=== PATIENT | male | born 1955 | race Caucasian/White ===

== ENCOUNTER 2017-12-24 11:52 | Outpatient (CLI) | payer OTHER ==
[2017-12-24 14:01] LABS: Hemoglobin 13.7 g/dL (14.0-18.0); Mean Corpuscular HGB CONC 34.5 g/dL (32.0-36.0); Mean Corpuscular Hemoglobin 32.2 pg (27.0-31.0); Mean Corpuscular Volume 93.3 fl (80.0-94.0); Mean Platelet Volume 6.6 fL (7.4-10.4); Platelet Count 364 thou/uL (130-400); RBC Distribution Width 11.7 % (11.5-14.5); Red Blood Cell (RBC) Count 4.27 mill/uL (4.70-6.10); White Blood Cell (WBC) Count 7.9 thou/uL (4.8-10.8)
[2017-12-24 14:07] LABS: INR-International Normal Ratio 1.1; PTT 32.1 SEC (22.9-36.1); Prothrombin Time 13.9 SEC (12.0-14.7)
[2017-12-24 14:09] LABS: Bilirubin Negative (Negative); Blood, Urine Trace (Negative); Clarity CLEAR (Clear); Glucose, Urine (Dipstick) Negative (Negative); Leukocyte Moderate (Negative); Nitrite Negative (Negative); Protein, Urine (Dipstick) Negative (Neg-Trace); Specific Gravity, Urine 1.017 (1.002-1.036); Urobilinogen 0.2 mg/dL (0.2-1.0); pH, Urine 5.5 (5.0-9.0)
[2017-12-24 14:14] LABS: Bacteria/HPF None Seen HPF (None Seen); Pathc Cast-AUWi Flag 0.87 (0-2.49)
[2017-12-24 14:30] LABS: Anion Gap 12 mmol/L (10-20); BUN (Urea Nitrogen) 16 mg/dL (8.4-25.7); Calc. Creatinine Clearance 0 mL/min (70-130); Calcium 9.3 mg/dL (7.8-10.44); Carbon Dioxide 24 mmol/L (23-31); Chloride 106 mmol/L (98-107); Estimated GFR-MDRD Greater than 90; Glucose 83 mg/dL (80-115); Potassium 4.1 mmol/L (3.5-5.1); Sodium 138 mmol/L (136-145)
[2017-12-24 15:15] LABS: Hyaline Casts/LPF 0-3 HYALINE CAST LPF (0-3 Hyaline)
[2017-12-24 15:16] LABS: Transitional Epithelial 0-3 HPF (0-3)
--- NOTE | 2017-12-24 16:49 | EKG ---
Test Reason : Blood Pressure : / mmHG Vent. Rate : 043 BPM Atrial Rate : 043 BPM P-R Int : 154 ms QRS Dur : 100 ms QT Int : 428 ms P-R-T Axes : 076 074 036 degrees QTc Int : 361 ms Marked sinus bradycardia Abnormal ECG When compared with ECG of 17-DEC-2010 09:27, No significant change was found Confirmed by DR. Keke WARNER ([id number]) on 12/24/2017 4:48:36 PM Referred By: JELLY Confirmed By:DR. Keke WARNER
== END 2017-12-24 11:53 | disposition home or self-care (01) ==
LOC: LABBT 11:52
PROVIDERS: ATTEND Urology
DX: Z01.818 Encounter for other preprocedural examination (principal); N40.1 Benign prostatic hyperplasia with lower urinary tract symptoms; R00.1 Bradycardia, unspecified; R94.31 Abnormal electrocardiogram [ECG] [EKG]
CPT/HCPCS: 80048; 81001; 85027; 85610; 85730; 86850; 86900; 86901; 87086; 93005; 93010

== ENCOUNTER 2017-12-30 06:02 | Observation (INO) | payer OTHER ==
[2017-12-24 12:28] VITALS: BMI 22.6
[2017-12-30] MEDS ORDERED: Levofloxacin 500 mg/D5W 100 ml Premix Bag ONE (06:12)
[2017-12-30] MEDS ORDERED: Midazolam HCl 2 mg/2 ml Vial ONE (07:12)
[2017-12-30] MEDS ORDERED: Fentanyl 100 MCG/2 ML VIAL ONE (07:12)
[2017-12-30] MEDS ORDERED: B & O ONE (07:15)
[2017-12-30] MEDS ORDERED: PROPOFOL 200 MG/20 ML VIAL ONE (07:16)
[2017-12-30] MEDS ORDERED: Lidocaine 1% PF 5 ML VIAL ONE (07:16)
[2017-12-30] MEDS ORDERED: PHENYLEPHRINE-NS 100 MCG/ML 10 ML SYRINGE ONE (07:16)
[2017-12-30] MEDS ORDERED: Glycopyrrolate 0.2 MG/ML 5 ML SYRINGE ONE (07:16)
[2017-12-30] MEDS ORDERED: Promethazine HCl 25 MG/ML VIAL IM PRN (09:07)
[2017-12-30] MEDS ORDERED: Promethazine HCl 25 MG/ML VIAL SLOW IVP PRN (09:07)
[2017-12-30] MEDS ORDERED: Ondansetron HCl/PF 4 MG/2 ML Vial IVP PRN ×2 (09:07→09:21)
[2017-12-30] MEDS ORDERED: Mag-Al 1200 mg/1200 mg/30 ML UDCUP PO PRN (09:21)
[2017-12-30] MEDS ORDERED: hydrALAZINE 20 MG/ML VIAL SLOW IVP PRN (09:21)
[2017-12-30] MEDS ORDERED: Acetaminophen 500 MG TAB PO PRN (09:21)
[2017-12-30] MEDS ORDERED: Morphine 4 MG/ML Carpuject IVP PRN (09:21)
[2017-12-30] MEDS ORDERED: Oxybutynin 5 MG TAB PO PRN (09:21)
[2017-12-30] MEDS ORDERED: diphenhydrAMINE 25 MG CAP PO PRN (09:21)
[2017-12-30] MEDS ORDERED: Bisacodyl 10 MG SUPP PR PRN (09:21)
[2017-12-30] MEDS ORDERED: traMADol HCl 50 MG TAB PO PRN (09:23)
--- NOTE | 2017-12-30 09:56 | OP ---
DATE OF SURGERY: 12/30/2017 SERVICE: Urology. SURGEON: Dr. Johnny Wills PREOPERATIVE DIAGNOSIS: Benign prostatic hypertrophy. POSTOPERATIVE DIAGNOSIS: Benign prostatic hypertrophy. PROCEDURE PERFORMED: Transurethral vaporization of the prostate. INDICATIONS FOR PROCEDURE: Mr. Morris is a 62-year-old white male with BPH and significant lower urinary tract symptoms. He does not like the idea of having to take medication for prostate issues f or his entire life. He has been worked up for prostatic obstruction, found to have an obstructive pr ostate with decreased Uroflow. Risks and benefits of surgery were discussed and he agreed to proceed forward. DESCRIPTION OF PROCEDURE: After identification of his armband and verification of consent, the patie nt was brought back to the operating room and underwent general anesthesia with an LMA. He was place d in dorsal lithotomy position and prepped and draped in usual sterile fashion. After appropriate ti meout, a lubricated 26 Nigerien resectoscope with visual obturator was introduced per urethra into the bladder. The prostate was hypertrophic as expected and previously been seen. The bladder was as pre viously described on cystoscopy with a bladder diverticulum on the right with ureteral orifice on the right just at the os of the diverticulum in the normal orthotopic on the left. Vaporization was beg un at the bladder neck and carried back towards the verumontanum circumferentially until the prostate was wide open. Resection was carried out close to the capsule, but not to it. The capsule was not seen at any point during the vaporization. There is still a rim of parenchyma still present between the capsule and the resection site. The prostate was wide open, however, and relaxing incisions were made at 5 and 7 o'clock on the bladder neck to further open up the bladder and allow for easier urin ation. Meticulous hemostasis was then performed with the coag function. Upon completion, the prosta te was wide open and there was no bleeding. Inspection within the bladder demonstrated both ureters in their orthotopic location unharmed. There were no chips to evacuate the resectoscope was then wit hdrawn and a 22-Nigerien three-way Araiza catheter was inserted with ease into the bladder. [address] erile water was instilled into the balloon and then hooked up to gravity drainage. CBI was initiated and a StatLock placed on the patient's leg. A 16 AB&O suppository was placed in the patient's rectum . The patient was then awakened and taken to PACU for recovery in stable condition. COMPLICATIONS: None. ESTIMATED BLOOD LOSS: Minimal. RETAINED TUBES AND DRAINS: The 22-Nigerien 3-way Araiza catheter with 30 mL of sterile water in the bal loon. SPECIMENS: None. DISPOSITION: The patient will be kept in the hospital overnight in observation for CBI. We will trish n for a voiding trial and discharge in the morning.
[2017-12-30] MEDS ORDERED: Morphine 4 MG/ML VIAL IV PRN ×3 (10:31→10:45)
[2017-12-30 11:11] LABS: Anion Gap 12 mmol/L (10-20); BUN (Urea Nitrogen) 15 mg/dL (8.4-25.7); Calc. Creatinine Clearance 87 mL/min (70-130); Calcium 9.3 mg/dL (7.8-10.44); Carbon Dioxide 25 mmol/L (23-31); Chloride 105 mmol/L (98-107); Estimated GFR-MDRD Greater than 90; Glucose 98 mg/dL (80-115); Potassium 4.1 mmol/L (3.5-5.1); Sodium 138 mmol/L (136-145)
[2017-12-30] MEDS: Hyoscyamine Sulfate SL 0.125 mg Tablet SL PRN (16:03)
[2017-12-30] MEDS ORDERED: Metamucil PACK PO SCH (17:45)
[2017-12-30] MEDS: Amlodipine 5 MG TAB PO SCH ×2 (20:08→21:45)
[2017-12-30] MEDS: Docusate 100 MG CAP PO SCH (20:13)
[2017-12-30] MEDS: Metoprolol Tartrate 25 MG TAB PO SCH (20:14)
[2017-12-30] MEDS ORDERED: Metoprolol Tartrate 25 MG TAB PO SCH (21:00)
[2017-12-30] MEDS ORDERED: Amlodipine 5 MG TAB PO SCH (21:00)
[2017-12-30] MEDS ORDERED: Lisinopril 10 MG TAB PO SCH ×2 (21:00)
[2017-12-30] MEDS ORDERED: Atorvastatin Calcium 20 MG TAB PO SCH ×2 (21:00)
[2017-12-31] MEDS: Hyoscyamine Sulfate SL 0.125 mg Tablet SL PRN (00:22)
[2017-12-31] MEDS ORDERED: Metamucil PACK PO SCH (09:00)
[2017-12-31] MEDS: Metoprolol Tartrate 25 MG TAB PO SCH (09:46)
[2017-12-31] MEDS: Docusate 100 MG CAP PO SCH (09:46)
[2017-12-31 11:53] VITALS: BP 125/76; TEMP 98
--- NOTE | 2017-12-31 14:50 | PRG ---
DATE OF SERVICE: 12/31/2017 SUBJECTIVE: The patient states he is doing very well. He has had no pain or bladder spasms. Denies any fevers or chills, had no events overnight. OBJECTIVE: VITAL SIGNS: Temperature 98.2, pulse 60, respirations 16, blood pressure 132/84, saturation 99% on r oom air. GENERAL: No apparent distress, communicative and alert. CARDIOVASCULAR: Regular rate and rhythm. ABDOMEN: Soft, nontender, nondistended, positive bowel sounds. GENITOURINARY: Araiza catheter in place with CBI off with completely yellow urine. EXTREMITIES: No clubbing, cyanosis or edema. LABORATORY DATA: On laboratory evaluation, a full set of labs in the [employer] system, which I have r estebanwed. Of note, patient's creatinine is 0.75. ASSESSMENT AND PLAN: A 62-year-old white male status post transurethral vaporization of the prostate postop day #1, he is doing very well. We will plan to void trial and serial urine collection so donna g as he is able to void with relatively clear urine. He can be discharged home and follow up with me in approximately 2 weeks for a postop check.
--- NOTE | 2017-12-31 15:10 | DIS ---
DATE OF ADMISSION: 12/30/2017 DATE OF DISCHARGE: 12/31/2017 ADMITTING PHYSICIAN: Johnny Wills M.D. DISCHARGING PHYSICIAN: Johnny Wills M.D. ADMITTING DIAGNOSIS: Benign prostatic hypertrophy. DISCHARGE DIAGNOSIS: Benign prostatic hypertrophy. PROCEDURE PERFORMED: Transurethral vaporization of the prostate. HISTORY: Please see scanned H and P in [facility]. HOSPITAL COURSE: After surgery (please see operative note for details), the patient was kept in the hospital overnight for continuous bladder irrigation. He had very little hematuria and CBI was stopp ed. He passed his voiding trial with clear urine on serial urine collection, was discharged to home. DISCHARGE DISPOSITION: To home. DISCHARGE CONDITION: Good. DISCHARGE MEDICATION RECONCILIATION: Please see BRIA in the [email or web address] system. DISCHARGE INSTRUCTIONS: Please see [email or web address]. FOLLOW UP: Will be in approximately 2 weeks.
== END 2017-12-31 12:32 | disposition home or self-care (01) ==
LOC: SDC 06:02 → SURG A 09:31
PROVIDERS: ADMIT Urology; ATTEND Urology
PROC: 0V507ZZ Destruction of Prostate, Via Natural or Artificial Opening (ICD-10-PCS; principal; 2017-12-30)
DX: N40.1 Benign prostatic hyperplasia with lower urinary tract symptoms (principal); N13.8 Other obstructive and reflux uropathy; I10 Essential (primary) hypertension; I25.10 Atherosclerotic heart disease of native coronary artery without angina pectoris; Z79.899 Other long term (current) drug therapy
CPT/HCPCS: 36415; 80048; G0378; J0360; J1956; J2001; J2250; J2704; J3010

== ENCOUNTER 2023-01-05 11:53 | Outpatient (CLI) | payer MEDICARE ==
[2023-01-05 13:52] LABS: #Eosinphils 0.1 10x3/uL (0.0-0.5); #Monocytes 0.8 10x3/uL (0.0-1.1); #Neutrophils 6.3 10x3/uL (1.5-8.4); %Basophils 0.4 % (0.0-2.0); %Eosinophils 1.2 % (0.0-6.0); %Lymphocytes 19.8 % (18.0-47.0); %Monocytes 9.1 % (0.0-10.0); Hemoglobin 13.2 g/dL (13.5-17.5); Mean Corpuscular HGB CONC 34.1 g/dL (32.0-36.0); Mean Corpuscular Hemoglobin 30.3 pg (27.0-33.0); Mean Platelet Volume 9.3 fl (7.4-10.4); Platelet Count 360 10x3/uL (150-450); RBC Distribution Width 12.8 % (11.5-14.5); Red Blood Cell (RBC) Count 4.35 10x6/uL (4.32-5.72); White Blood Cell (WBC) Count 9.1 10x3/uL (3.5-10.5)
[2023-01-05 14:20] LABS: ALT (SGPT) 16 U/L (8-55); AST (SGOT) 16 U/L (5-34); Albumin 4.5 g/dL (3.4-4.8); Alkaline Phosphatase 56 U/L (40-110); Anion Gap 17 mmol/L (10-20); BUN (Urea Nitrogen) 21 mg/dL (8.4-25.7); Bilirubin, Total 0.7 mg/dL (0.2-1.2); Calc. Creatinine Clearance 0 mL/min (70-130); Calcium 9.4 mg/dL (7.8-10.44); Carbon Dioxide 20 mmol/L (23-31); Chloride 105 mmol/L (98-107); Estimated GFR 96; Globulin 2.3 g/dL (2.4-3.5); Glucose 97 mg/dL (80-115); Potassium 4.2 mmol/L (3.5-5.1); Protein, Total 6.8 g/dL (5.8-8.1); Sodium 138 mmol/L (136-145)
== END 2023-01-05 11:54 | disposition home or self-care (01) ==
LOC: LABBT 11:53
PROVIDERS: ATTEND Internal Medicine Cardiovascular Disease
DX: Z01.812 Encounter for preprocedural laboratory examination (principal)
CPT/HCPCS: 80053; 85025

== ENCOUNTER 2023-06-28 20:51 | Observation (INO) | payer MEDICARE ==
[~2023-06-28 20:51] MED LIST: Iopamidol 370 76% 100 ML VIAL ONE
[2023-06-28 22:05] LABS: #Basophils 0.1 thou/uL (0.0-0.2); #Eosinphils 0.1 thou/uL (0.0-0.7); #Neutrophils 7.7 thou/uL (1.40-6.50); %Basophils 0.5 % (0.0-1.0); %Eosinophils 1.2 % (0.0-10.0); %Lymphocytes 17.8 % (21.0-51.0); %Neutrophils 69.9 % (42.0-75.0); Hematocrit 39.6 % (42.0-52.0); Mean Corpuscular HGB CONC 32.8 g/dL (32.0-36.0); Mean Corpuscular Hemoglobin 29.5 pg (27.0-31.0); Mean Platelet Volume 8.2 fL (7.4-10.4); Platelet Count 520 10x3/uL (130-400); RBC Distribution Width 13.7 % (11.5-14.5)
[2023-06-28 22:29] LABS: ALT (SGPT) 82 U/L (8-55); AST (SGOT) 27 U/L (5-34); Albumin 4.7 g/dL (3.4-4.8); Alkaline Phosphatase 38 U/L (40-110); Anion Gap 15 mmol/L (10-20); BUN (Urea Nitrogen) 13 mg/dL (8.4-25.7); Bilirubin, Total 0.9 mg/dL (0.2-1.2); Calc. Creatinine Clearance 0 mL/min (70-130); Calcium 9.7 mg/dL (7.8-10.44); Carbon Dioxide 26 mmol/L (23-31); Chloride 100 mmol/L (98-107); Estimated GFR 95; Globulin 2.3 g/dL (2.4-3.5); Glucose 119 mg/dL (80-115); Lipase 21 U/L (8-78); Magnesium 2.3 mg/dL (1.6-2.6); Potassium 4.1 mmol/L (3.5-5.1); Sodium 137 mmol/L (136-145)
[2023-06-28 22:48] LABS: Bacteria/HPF None Seen HPF (None Seen); Bilirubin Negative (Negative); Blood, Urine Negative (Negative); CAUTI Indications for Culture Pelvic or flank pain; Clarity Clear (Clear); Glucose, Urine (Dipstick) Normal (Negative); Ketone, Urine Negative (Negative); Leukocyte Negative Leu/uL (Negative); Nitrite Negative (Negative); Protein, Urine (Dipstick) Negative (Neg-Trace); RBC/HPF 0-3 HPF (0-3); Squamous Epithelial None Seen HPF (0-3); Urobilinogen Normal mg/dL (Less than 2); WBC/HPF 0-3 HPF (0-3)
[2023-06-28 22:51] LABS: Urine Culture Reflex No No
[2023-06-28] MEDS ORDERED: Ondansetron PF 4 MG/2 ML Vial ONE (22:57)
[2023-06-28] MEDS ORDERED: Metoclopramide HCl 10 MG/2 ML VIAL ONE (22:57)
[2023-06-28] MEDS ORDERED: diphenhydrAMINE 50 MG/ML VIAL ONE (22:57)
[2023-06-29] MEDS ORDERED: HYDROcodone/Acetaminophen 5/325 mg Tablet ONE (00:23)
[2023-06-29] MEDS ORDERED: Acetaminophen 325 MG TAB PO PRN (01:10)
[2023-06-29] MEDS ORDERED: Ondansetron ODT 4 MG TAB PO PRN (01:10)
[2023-06-29] MEDS ORDERED: Ondansetron PF 4 MG/2 ML Vial IVP PRN (01:10)
[2023-06-29] MEDS ORDERED: Sodium Chloride 0.9% 1,000 ML IV SCH (01:15)
[2023-06-29] MEDS ORDERED: Labetalol HCl 100 MG/20 ML VIAL SLOW IVP PRN (01:38)
[2023-06-29 01:55] VITALS: BMI 25.0
[2023-06-29 01:59] LABS: Amphetamine Not Detected (NotDetected); Barbiturates Screen Not Detected (NotDetected); Benzodiazepine Screen Not Detected (NotDetected); Cocaine Metabolite Screen Not Detected (NotDetected); Methadone Not Detected (NotDetected); Methamphetamine Not Detected (NotDetected); Opiate Screen Not Detected (NotDetected); Oxycodone Screen Not Detected (NotDetected); Phencyclidine (PCP) Not Detected (NotDetected); THC/Cannabinoid Screen Detected (NotDetected); Tricyclic Screen Not Detected (NotDetected)
[2023-06-29] MEDS: metroNIDAZOLE 500 MG in Premix 1 BAG IVPB SCH ×3 (02:03→17:25)
[2023-06-29] MEDS ORDERED: Lisinopril 10 MG TAB PO SCH ×2 (02:45→21:00)
[2023-06-29] MEDS ORDERED: hydrALAZINE 20 MG/ML VIAL SLOW IVP SCH (02:45)
[2023-06-29] MEDS ORDERED: LevoFLOXacin 750 mg/D5W 750 MG in Premix 1 BAG IVPB SCH (03:00)
[2023-06-29] MEDS: HYDROcodone/Acetaminophen 7.5/325 mg Tablet PO PRN ×2 (03:01→08:20)
[2023-06-29 06:51] LABS: #Basophils 0.1 thou/uL (0.0-0.2); #Eosinphils 0.2 thou/uL (0.0-0.7); #Monocytes 1.1 thou/uL (0.11-0.59); #Neutrophils 7.9 thou/uL (1.40-6.50); %Basophils 0.5 % (0.0-1.0); %Eosinophils 1.4 % (0.0-10.0); %Lymphocytes 15.6 % (21.0-51.0); %Monocytes 9.8 % (0.0-10.0); %Neutrophils 69.8 % (42.0-75.0); Mean Corpuscular HGB CONC 33.3 g/dL (32.0-36.0); Mean Corpuscular Hemoglobin 30.2 pg (27.0-31.0); Mean Corpuscular Volume 90.7 fl (78.0-98.0); Mean Platelet Volume 8.1 fL (7.4-10.4); Platelet Count 545 10x3/uL (130-400); RBC Distribution Width 13.6 % (11.5-14.5); Red Blood Cell (RBC) Count 4.63 mill/uL (4.70-6.10); White Blood Cell (WBC) Count 11.4 10x3/uL (4.8-10.8)
[2023-06-29 07:21] LABS: Anion Gap 14 mmol/L (10-20); BUN (Urea Nitrogen) 10 mg/dL (8.4-25.7); Calc. Creatinine Clearance 87 mL/min (70-130); Calcium 9.3 mg/dL (7.8-10.44); Carbon Dioxide 26 mmol/L (23-31); Chloride 102 mmol/L (98-107); Estimated GFR 97; Glucose 103 mg/dL (80-115); Magnesium 2.2 mg/dL (1.6-2.6); Phosphorus 3.4 mg/dL (2.3-4.7); Potassium 3.8 mmol/L (3.5-5.1); Sodium 138 mmol/L (136-145)
[2023-06-29] MEDS ORDERED: Isosorbide Mononitrate 30 MG ER.TAB PO SCH (09:00)
[2023-06-29] MEDS ORDERED: Metoprolol Tartrate 25 MG TAB PO SCH (09:00)
[2023-06-29] MEDS ORDERED: Clopidogrel Bisulfate 75 MG TAB PO SCH (09:00)
[2023-06-29] MEDS ORDERED: FLU VACC QS2023(65UP)/MF59C/PF 60 MCG/0.5 ML SYRINGE IM ONE (09:00)
[2023-06-29] MEDS ORDERED: Non-Formulary Item 1 EACH (Isosorbide Mononitrate [Isosorbide Mononitrate] 10 MG Tablet) PO SCH (09:00)
[2023-06-29] MEDS ORDERED: Aspirin Chewable 81 MG TAB PO SCH (09:00)
[2023-06-29 11:31] LABS: ALT (SGPT) 72 U/L (8-55); AST (SGOT) 23 U/L (5-34); Albumin 4.9 g/dL (3.4-4.8); Alkaline Phosphatase 40 U/L (40-110); Bilirubin, Direct 0.4 mg/dL (0.1-0.3); Bilirubin, Total 0.8 mg/dL (0.2-1.2); Protein, Total 7.2 g/dL (5.8-8.1)
[2023-06-29 11:50] LABS: HIV (1/2) Antibody/Antigen Non-Reactive (NonReactive); HIV 1/2 INDEX 0.12 S/CO (<1.00)
[2023-06-29 19:35] VITALS: BP 127/86; TEMP 97.9
[2023-06-29] MEDS ORDERED: Atorvastatin Calcium 20 MG TAB PO SCH (21:00)
[2023-06-30 11:04] LABS: Syphilis Antibody Nonreactive (Nonreactive); Syphilis Antibody Index 0.02 S/CO (<1.00 Non-Reactive)
== END 2023-06-29 19:45 | disposition home or self-care (01) ==
LOC: ERS 20:51 → T4-A 06-29 01:35
PROVIDERS: ADMIT Internal Medicine; ATTEND Family Medicine
DX: E78.5 Hyperlipidemia, unspecified (principal); I10 Essential (primary) hypertension; I25.10 Atherosclerotic heart disease of native coronary artery without angina pectoris; K62.89 Other specified diseases of anus and rectum; R53.1 Weakness; Z79.82 Long term (current) use of aspirin; Z79.02 Long term (current) use of antithrombotics/antiplatelets; Z79.899 Other long term (current) drug therapy; Z95.5 Presence of coronary angioplasty implant and graft; Z90.79 Acquired absence of other genital organ(s)
CPT/HCPCS: 51702; 71045; 74177; 80048; 80076; 80306; 81001; 83605; 83690; 83735 ×2; 83880; 84100; 85025; 86140; 86780; 87040; 87086; 87389; 93005; 96372; 96374; 96375 ×2; 96376; 99285; G0378 ×2; J0360; 36415; 36416; 80053; 84443; J1200; J1650; J1956; J2405; J2765; J7050; Q0162; Q9967

== ENCOUNTER 2023-07-15 10:13 | Inpatient (IN) | payer MEDICARE, OTHER ==
[2023-07-15] MEDS ORDERED: Sodium Chloride 0.9% 100 ML ONE (10:32)
[2023-07-15] MEDS ORDERED: Cefepime 2 GM VIAL ONE (10:32)
[2023-07-15 10:44] LABS: Actual Bicarbonate (HCO3v) 18.7 mEq/L (22-28); Base Excess -4.2 mEq/L (-2.0 to +3.0); Calcium, Ionized (venous) 1.02 mmol/L (1.16-1.32); Chloride (VBG) 83 mmol/L (98-106); Hematocrit-VBG 39 % (42.0-52.0); Hemoglobin (Hb) 13.4 g/dL (12.6-17.4); Potassium (VBG) 3.97 mmol/L (3.70-5.30); pH (venous) 7.434 (7.32-7.43)
[2023-07-15 10:50] LABS: #Monocytes 0.8 thou/uL (0.11-0.59); #Neutrophils 11.1 thou/uL (1.40-6.50); %Basophils 0.1 % (0.0-1.0); %Lymphocytes 4.1 % (21.0-51.0); %Monocytes 6.5 % (0.0-10.0); %Neutrophils 88.5 % (42.0-75.0); Hematocrit 35.1 % (42.0-52.0); Hemoglobin 12.8 g/dL (14.0-18.0); Mean Corpuscular HGB CONC 36.5 g/dL (32.0-36.0); Mean Corpuscular Hemoglobin 30.6 pg (27.0-31.0); Mean Platelet Volume 7.9 fL (7.4-10.4); Platelet Count 362 10x3/uL (130-400); RBC Distribution Width 12.3 % (11.5-14.5); Red Blood Cell (RBC) Count 4.18 mill/uL (4.70-6.10); White Blood Cell (WBC) Count 12.6 10x3/uL (4.8-10.8)
[2023-07-15] MEDS ORDERED: Iopamidol-370 76% 500 ML MDV (1 ML CHARGE) ONE (10:54)
[2023-07-15] MEDS ORDERED: Vancomycin (BATCH) 1.5 GM in Premix 1 BAG IVPB SCH (11:00)
[2023-07-15 11:03] LABS: Bacteria/HPF None Seen HPF (None Seen); Bilirubin Negative (Negative); Blood, Urine Negative (Negative); CAUTI Indications for Culture Alt mental st,lethar; Clarity Clear (Clear); Glucose, Urine (Dipstick) 70 mg/dL (Negative); Ketone, Urine Trace mg/dL (Negative); Leukocyte Negative Leu/uL (Negative); Nitrite Negative (Negative); Protein, Urine (Dipstick) 10 mg/dL (Neg-Trace); RBC/HPF 0-3 HPF (0-3); Squamous Epithelial None Seen HPF (0-3); Urobilinogen Normal mg/dL (Less than 2); WBC/HPF 0-3 HPF (0-3)
[2023-07-15 11:05] LABS: Urine Culture Reflex No No
[2023-07-15 11:09] LABS: PTT 32.3 sec (22.9-36.1)
[2023-07-15 11:12] LABS: Acetaminophen Less than 10 mcg/mL (10.0-30.0); Alcohol Less than 10.0 mg/dL (Less than 10); Salicylate Less than 8.0 mg/dL (15.0-30.0)
[2023-07-15 11:14] LABS: ALT (SGPT) 56 U/L (8-55); AST (SGOT) 82 U/L (5-34); Albumin 4.1 g/dL (3.4-4.8); Alkaline Phosphatase 38 U/L (40-110); Anion Gap 16 mmol/L (10-20); BUN (Urea Nitrogen) 10 mg/dL (8.4-25.7); Bilirubin, Total 2.4 mg/dL (0.2-1.2); CK (CPK) 3604 U/L (30-200); Calc. Creatinine Clearance 0 mL/min (70-130); Calcium 8.8 mg/dL (7.8-10.44); Carbon Dioxide 20 mmol/L (23-31); Chloride 82 mmol/L (98-107); Estimated GFR 102; Globulin 2.7 g/dL (2.4-3.5); Glucose 133 mg/dL (80-115); Lipase 12 U/L (8-78); Potassium 3.9 mmol/L (3.5-5.1); Protein, Total 6.8 g/dL (5.8-8.1)
[2023-07-15 11:17] LABS: Troponin I 0.014 ng/mL (< 0.028)
[2023-07-15 11:21] LABS: Amphetamine Not Detected (NotDetected); Barbiturates Screen Not Detected (NotDetected); Benzodiazepine Screen Not Detected (NotDetected); Cocaine Metabolite Screen Not Detected (NotDetected); Methadone Not Detected (NotDetected); Methamphetamine Not Detected (NotDetected); Opiate Screen Not Detected (NotDetected); Oxycodone Screen Not Detected (NotDetected); Phencyclidine (PCP) Not Detected (NotDetected); THC/Cannabinoid Screen Not Detected (NotDetected); Tricyclic Screen Not Detected (NotDetected)
[2023-07-15 11:23] LABS: Sodium 114 mmol/L (136-145)
[2023-07-15 13:33] LABS: Anion Gap 13 mmol/L (10-20); BUN (Urea Nitrogen) 9 mg/dL (8.4-25.7); Calc. Creatinine Clearance 0 mL/min (70-130); Calcium 8.6 mg/dL (7.8-10.44); Carbon Dioxide 23 mmol/L (23-31); Chloride 88 mmol/L (98-107); Estimated GFR 104; Glucose 125 mg/dL (80-115); Potassium 3.5 mmol/L (3.5-5.1); Sodium 120 mmol/L (136-145)
[2023-07-15] MEDS ORDERED: Acetaminophen 325 MG TAB PO PRN (14:13)
[2023-07-15 14:24] LABS: Lactic Acid 1.3 mmol/L (0.5-2.2)
[2023-07-15 14:34] LABS: Troponin I 0.032 ng/mL (< 0.028)
[2023-07-15] MEDS ORDERED: Thiamine HCl 200 MG/2 ML VIAL SLOW IVP SCH (15:00)
[2023-07-15 15:16] LABS: Anion Gap 10 mmol/L (10-20); BUN (Urea Nitrogen) 8 mg/dL (8.4-25.7); Calc. Creatinine Clearance 0 mL/min (70-130); Calcium 8.7 mg/dL (7.8-10.44); Carbon Dioxide 25 mmol/L (23-31); Chloride 92 mmol/L (98-107); Estimated GFR 104; Glucose 119 mg/dL (80-115); Potassium 3.3 mmol/L (3.5-5.1); Sodium 124 mmol/L (136-145)
[2023-07-15] MEDS ORDERED: FLU VACC QS2023(65UP)/MF59C/PF 60 MCG/0.5 ML SYRINGE IM ONE (17:30)
[2023-07-15] MEDS: Thiamine HCl 500 MG, Admixture Fee 1 EACH in Sodium Chloride 0.9% 100 ML IVPB SCH ×2 (17:32→21:26)
[2023-07-15 17:33] LABS: Anion Gap 12 mmol/L (10-20); BUN (Urea Nitrogen) 7 mg/dL (8.4-25.7); Calc. Creatinine Clearance 91 mL/min (70-130); Calcium 9.3 mg/dL (7.8-10.44); Carbon Dioxide 25 mmol/L (23-31); Chloride 94 mmol/L (98-107); Estimated GFR 103; Glucose 108 mg/dL (80-115); Potassium 3.3 mmol/L (3.5-5.1); Sodium 128 mmol/L (136-145)
[2023-07-15 17:38] LABS: Troponin I 0.042 ng/mL (< 0.028)
[2023-07-15 18:45] LABS: Anion Gap 11 mmol/L (10-20); BUN (Urea Nitrogen) 7 mg/dL (8.4-25.7); Calc. Creatinine Clearance 89 mL/min (70-130); Calcium 9.1 mg/dL (7.8-10.44); Carbon Dioxide 25 mmol/L (23-31); Chloride 95 mmol/L (98-107); Estimated GFR 103; Glucose 109 mg/dL (80-115); Potassium 3.3 mmol/L (3.5-5.1); Sodium 128 mmol/L (136-145)
[2023-07-15] MEDS ORDERED: Dextrose 5% in Water 1,000 ML IV SCH (19:00)
[2023-07-15] MEDS: Famotidine/PF 20 mg/2ml Vial SLOW IVP SCH (20:13)
[2023-07-15] MEDS: Atorvastatin Calcium 20 MG TAB PO SCH (20:13)
[2023-07-15] MEDS: Metoprolol Tartrate 25 MG TAB PO SCH (20:13)
[2023-07-15] MEDS: Lisinopril 10 MG TAB PO SCH (20:13)
[2023-07-15 21:40] LABS: Anion Gap 11 mmol/L (10-20); BUN (Urea Nitrogen) 7 mg/dL (8.4-25.7); Calc. Creatinine Clearance 88 mL/min (70-130); Calcium 8.8 mg/dL (7.8-10.44); Carbon Dioxide 24 mmol/L (23-31); Chloride 96 mmol/L (98-107); Estimated GFR 102; Glucose 126 mg/dL (80-115); Potassium 3.1 mmol/L (3.5-5.1); Sodium 128 mmol/L (136-145)
[2023-07-15] MEDS: Dextrose 5% in Water 1,000 ML IV SCH (22:30)
[2023-07-15 23:46] LABS: Anion Gap 11 mmol/L (10-20); BUN (Urea Nitrogen) 7 mg/dL (8.4-25.7); Calc. Creatinine Clearance 86 mL/min (70-130); Calcium 8.7 mg/dL (7.8-10.44); Carbon Dioxide 23 mmol/L (23-31); Chloride 97 mmol/L (98-107); Estimated GFR 102; Glucose 128 mg/dL (80-115); Potassium 3.1 mmol/L (3.5-5.1); Sodium 128 mmol/L (136-145)
[2023-07-16] MEDS ORDERED: Potassium Bicarbonate/Cit Ac 20 MEQ TAB PO SCH (00:30)
[2023-07-16 02:10] LABS: Anion Gap 13 mmol/L (10-20); BUN (Urea Nitrogen) 7 mg/dL (8.4-25.7); Calc. Creatinine Clearance 81 mL/min (70-130); Carbon Dioxide 26 mmol/L (23-31); Chloride 93 mmol/L (98-107); Estimated GFR 100; Glucose 92 mg/dL (80-115); Potassium 4.1 mmol/L (3.5-5.1); Sodium 128 mmol/L (136-145)
[2023-07-16] MEDS: Dextrose 5% in Water 1,000 ML IV SCH ×2 (02:14→05:00)
[2023-07-16 04:24] LABS: #Monocytes 1.1 thou/uL (0.11-0.59); #Neutrophils 6.4 thou/uL (1.40-6.50); %Basophils 0.2 % (0.0-1.0); %Eosinophils 0.1 % (0.0-10.0); %Lymphocytes 10.5 % (21.0-51.0); %Monocytes 12.6 % (0.0-10.0); %Neutrophils 75.8 % (42.0-75.0); Hematocrit 32.7 % (42.0-52.0); Hemoglobin 11.5 g/dL (14.0-18.0); Mean Corpuscular HGB CONC 35.2 g/dL (32.0-36.0); Mean Corpuscular Hemoglobin 30.1 pg (27.0-31.0); Mean Corpuscular Volume 85.6 fl (78.0-98.0); Platelet Count 334 10x3/uL (130-400); Red Blood Cell (RBC) Count 3.82 mill/uL (4.70-6.10); White Blood Cell (WBC) Count 8.5 10x3/uL (4.8-10.8)
[2023-07-16 05:08] LABS: Anion Gap 11 mmol/L (10-20); BUN (Urea Nitrogen) 7 mg/dL (8.4-25.7); Calc. Creatinine Clearance 89 mL/min (70-130); Calcium 8.6 mg/dL (7.8-10.44); Carbon Dioxide 23 mmol/L (23-31); Chloride 97 mmol/L (98-107); Estimated GFR 103; Glucose 129 mg/dL (80-115); Potassium 3.7 mmol/L (3.5-5.1); Sodium 127 mmol/L (136-145)
[2023-07-16 05:52] LABS: ALT (SGPT) 54 U/L (8-55); AST (SGOT) 69 U/L (5-34); Albumin 3.5 g/dL (3.4-4.8); Alkaline Phosphatase 29 U/L (40-110); Bilirubin, Direct 0.5 mg/dL (0.1-0.3); Bilirubin, Total 1.2 mg/dL (0.2-1.2); CK (CPK) 2460 U/L (30-200); Protein, Total 5.2 g/dL (5.8-8.1)
[2023-07-16] MEDS: Metoprolol Tartrate 25 MG TAB PO SCH ×3 (07:52→21:37)
[2023-07-16] MEDS: Aspirin Chewable 81 MG TAB PO SCH (07:53)
[2023-07-16] MEDS: Clopidogrel Bisulfate 75 MG TAB PO SCH (07:53)
[2023-07-16] MEDS: Famotidine/PF 20 mg/2ml Vial SLOW IVP SCH ×2 (07:53→21:25)
[2023-07-16] MEDS: Isosorbide Mononitrate 30 MG ER.TAB PO SCH (07:53)
[2023-07-16] MEDS: Thiamine HCl 500 MG, Admixture Fee 1 EACH in Sodium Chloride 0.9% 100 ML IVPB SCH ×3 (08:22→21:25)
[2023-07-16 09:11] VITALS: BMI 20.1
[2023-07-16] MEDS ORDERED: Acetaminophen 325 MG TAB PO PRN (09:19)
[2023-07-16] MEDS ORDERED: Ondansetron PF 4 MG/2 ML Vial IVP PRN (09:19)
[2023-07-16 09:47] LABS: Anion Gap 13 mmol/L (10-20); BUN (Urea Nitrogen) 7 mg/dL (8.4-25.7); Calc. Creatinine Clearance 76 mL/min (70-130); Calcium 8.5 mg/dL (7.8-10.44); Carbon Dioxide 21 mmol/L (23-31); Chloride 97 mmol/L (98-107); Estimated GFR 99; Glucose 142 mg/dL (80-115); Potassium 3.2 mmol/L (3.5-5.1); Sodium 128 mmol/L (136-145)
[2023-07-16] MEDS ORDERED: Potassium Chloride 20 MEQ TAB PO SCH (11:00)
[2023-07-16 13:38] LABS: Anion Gap 9 mmol/L (10-20); BUN (Urea Nitrogen) 9 mg/dL (8.4-25.7); Calc. Creatinine Clearance 73 mL/min (70-130); Calcium 8.6 mg/dL (7.8-10.44); Carbon Dioxide 27 mmol/L (23-31); Chloride 95 mmol/L (98-107); Estimated GFR 98; Glucose 95 mg/dL (80-115); Potassium 3.8 mmol/L (3.5-5.1); Sodium 127 mmol/L (136-145)
[2023-07-16 17:38] LABS: Anion Gap 12 mmol/L (10-20); BUN (Urea Nitrogen) 13 mg/dL (8.4-25.7); Calc. Creatinine Clearance 72 mL/min (70-130); Calcium 8.6 mg/dL (7.8-10.44); Carbon Dioxide 25 mmol/L (23-31); Chloride 97 mmol/L (98-107); Estimated GFR 98; Glucose 109 mg/dL (80-115); Potassium 3.9 mmol/L (3.5-5.1); Sodium 130 mmol/L (136-145)
[2023-07-16] MEDS: Tamsulosin HCl 0.4 MG CAP PO SCH (21:25)
[2023-07-16] MEDS: Atorvastatin Calcium 20 MG TAB PO SCH (21:25)
[2023-07-16] MEDS: Lisinopril 10 MG TAB PO SCH (21:26)
[2023-07-16 21:45] LABS: Anion Gap 10 mmol/L (10-20); BUN (Urea Nitrogen) 16 mg/dL (8.4-25.7); Calc. Creatinine Clearance 71 mL/min (70-130); Calcium 8.8 mg/dL (7.8-10.44); Carbon Dioxide 26 mmol/L (23-31); Chloride 96 mmol/L (98-107); Estimated GFR 97; Glucose 95 mg/dL (80-115); Potassium 4.2 mmol/L (3.5-5.1); Sodium 128 mmol/L (136-145)
[2023-07-17 03:53] LABS: #Eosinphils 0.1 thou/uL (0.0-0.7); #Monocytes 1.1 thou/uL (0.11-0.59); #Neutrophils 4.5 thou/uL (1.40-6.50); %Basophils 0.4 % (0.0-1.0); %Eosinophils 1.7 % (0.0-10.0); %Lymphocytes 20.6 % (21.0-51.0); %Monocytes 14.4 % (0.0-10.0); %Neutrophils 61.2 % (42.0-75.0); Hematocrit 30.8 % (42.0-52.0); Hemoglobin 10.7 g/dL (14.0-18.0); Mean Corpuscular HGB CONC 34.7 g/dL (32.0-36.0); Mean Corpuscular Hemoglobin 30.9 pg (27.0-31.0); Mean Platelet Volume 8.2 fL (7.4-10.4); Platelet Count 322 10x3/uL (130-400); RBC Distribution Width 13.4 % (11.5-14.5); Red Blood Cell (RBC) Count 3.46 mill/uL (4.70-6.10); White Blood Cell (WBC) Count 7.4 10x3/uL (4.8-10.8)
[2023-07-17 04:21] LABS: ALT (SGPT) 61 U/L (8-55); AST (SGOT) 61 U/L (5-34); Albumin 3.3 g/dL (3.4-4.8); Alkaline Phosphatase 25 U/L (40-110); Anion Gap 12 mmol/L (10-20); BUN (Urea Nitrogen) 13 mg/dL (8.4-25.7); Bilirubin, Total 1.5 mg/dL (0.2-1.2); Calc. Creatinine Clearance 77 mL/min (70-130); Calcium 8.4 mg/dL (7.8-10.44); Carbon Dioxide 23 mmol/L (23-31); Chloride 99 mmol/L (98-107); Estimated GFR 100; Globulin 2.3 g/dL (2.4-3.5); Glucose 90 mg/dL (80-115); Potassium 4.3 mmol/L (3.5-5.1); Protein, Total 5.6 g/dL (5.8-8.1); Sodium 130 mmol/L (136-145)
[2023-07-17] MEDS: Folic Acid 1 MG TAB PO SCH (09:09)
[2023-07-17] MEDS: Isosorbide Mononitrate 30 MG ER.TAB PO SCH (09:09)
[2023-07-17] MEDS: Clopidogrel Bisulfate 75 MG TAB PO SCH (09:09)
[2023-07-17] MEDS: Metoprolol Tartrate 25 MG TAB PO SCH ×2 (09:09→20:22)
[2023-07-17] MEDS: Aspirin Chewable 81 MG TAB PO SCH (09:09)
[2023-07-17] MEDS: Famotidine/PF 20 mg/2ml Vial SLOW IVP SCH ×2 (09:09→20:22)
[2023-07-17] MEDS: Thiamine HCl 500 MG, Admixture Fee 1 EACH in Sodium Chloride 0.9% 100 ML IVPB SCH ×3 (11:23→20:22)
[2023-07-17] MEDS: Lisinopril 10 MG TAB PO SCH (20:23)
[2023-07-17] MEDS: Atorvastatin Calcium 20 MG TAB PO SCH (20:23)
[2023-07-17] MEDS: Tamsulosin HCl 0.4 MG CAP PO SCH (20:23)
[2023-07-18 06:08] LABS: Anion Gap 12 mmol/L (10-20); BUN (Urea Nitrogen) 11 mg/dL (8.4-25.7); Calc. Creatinine Clearance 75 mL/min (70-130); Carbon Dioxide 26 mmol/L (23-31); Chloride 98 mmol/L (98-107); Estimated GFR 99; Glucose 96 mg/dL (80-115); Potassium 3.9 mmol/L (3.5-5.1); Sodium 132 mmol/L (136-145)
[2023-07-18] MEDS: Isosorbide Mononitrate 30 MG ER.TAB PO SCH (08:34)
[2023-07-18] MEDS: Aspirin Chewable 81 MG TAB PO SCH (08:34)
[2023-07-18] MEDS: Clopidogrel Bisulfate 75 MG TAB PO SCH (08:34)
[2023-07-18] MEDS: Thiamine HCl 500 MG, Admixture Fee 1 EACH in Sodium Chloride 0.9% 100 ML IVPB SCH ×3 (08:34→21:43)
[2023-07-18] MEDS: Folic Acid 1 MG TAB PO SCH (08:34)
[2023-07-18] MEDS: Metoprolol Tartrate 25 MG TAB PO SCH ×2 (08:34→21:42)
[2023-07-18] MEDS: Famotidine/PF 20 mg/2ml Vial SLOW IVP SCH ×2 (08:34→21:43)
[2023-07-18] MEDS: Tamsulosin HCl 0.4 MG CAP PO SCH (21:42)
[2023-07-18] MEDS: Lisinopril 10 MG TAB PO SCH (21:42)
[2023-07-18] MEDS: Atorvastatin Calcium 20 MG TAB PO SCH (21:42)
[2023-07-18] MEDS: Sodium Chloride 1 GM TAB PO SCH (21:42)
[2023-07-19] MEDS: Metoprolol Tartrate 25 MG TAB PO SCH (08:35)
[2023-07-19] MEDS: Isosorbide Mononitrate 30 MG ER.TAB PO SCH (08:35)
[2023-07-19] MEDS: Sodium Chloride 1 GM TAB PO SCH (08:36)
[2023-07-19] MEDS: Clopidogrel Bisulfate 75 MG TAB PO SCH (08:36)
[2023-07-19] MEDS: Aspirin Chewable 81 MG TAB PO SCH (08:36)
[2023-07-19] MEDS: Famotidine/PF 20 mg/2ml Vial SLOW IVP SCH (08:36)
[2023-07-19] MEDS: Folic Acid 1 MG TAB PO SCH (08:36)
[2023-07-19] MEDS: Thiamine HCl 500 MG, Admixture Fee 1 EACH in Sodium Chloride 0.9% 100 ML IVPB SCH ×2 (09:04→14:47)
[2023-07-19 09:56] VITALS: BP 162/91; TEMP 97.7
[2023-07-19 14:46] LABS: Sodium 115 mmol/L (133-146)
== END 2023-07-19 15:49 | disposition home or self-care (01) | DRG 640 ==
LOC: ERS 10:13 → CCU 14:14 → T4-B 07-16 11:02
PROVIDERS: ADMIT Internal Medicine; ATTEND Family Medicine
PROC: 0T9B70Z Drainage of Bladder with Drainage Device, Via Natural or Artificial Opening (ICD-10-PCS; principal; 2023-07-15)
PROC: 4A043R1 Measurement of Venous Saturation, Peripheral, Percutaneous Approach (ICD-10-PCS; 2023-07-15)
DX: E87.1 Hypo-osmolality and hyponatremia (principal); G93.41 Metabolic encephalopathy; E80.6 Other disorders of bilirubin metabolism; T79.6XXA Traumatic ischemia of muscle, initial encounter; R33.9 Retention of urine, unspecified; D72.829 Elevated white blood cell count, unspecified; Z79.899 Other long term (current) drug therapy; Z79.82 Long term (current) use of aspirin; E78.5 Hyperlipidemia, unspecified; I25.10 Atherosclerotic heart disease of native coronary artery without angina pectoris; Z95.5 Presence of coronary angioplasty implant and graft; I10 Essential (primary) hypertension; Z98.890 Other specified postprocedural states; Z90.89 Acquired absence of other organs; N40.1 Benign prostatic hyperplasia with lower urinary tract symptoms; F10.10 Alcohol abuse, uncomplicated
CPT/HCPCS: 36415; 36416; 51701; 70450; 71045; 71260; 72125; 74177; 80048; 80053; 80076; 80306; 80307; 81001; 82533; 82550; 82805; 83605; 83690; 83880; 83930; 83935; 84300; 84443; 84484; 85025; 85610; 85730; 87040; 87086; 93005; 96365; 96367; J0692; J1650; J2405; J3370; J3411; J3490; J7070; Q9967; S0028